=== PATIENT | female | born 1995 | race Caucasian/White ===

== ENCOUNTER 2020-12-05 23:34 | Outpatient (CLI) | payer OTHER ==
[~2020-12-05] VITALS: Ht 160 cm; Wt 83.9 kg
[2020-12-05 23:51] VITALS: BP 119/69
[2020-12-05] MEDS ORDERED: PRENTAB9 PO (23:56)
[2020-12-06 00:47] LABS: HEMATOCRIT 31.7 % (36.0-47.0); MEAN CORPUSCULAR HEMOGLOBIN 28.5 pg (27.0-33.0); MEAN CORPUSCULAR HGB CONC 31.5 g/dl (32.0-36.5); MEAN CORPUSCULAR VOLUME 90.3 fl (80.0-96.0); PLATELET COUNT, AUTOMATED 202 10^3/uL (150-450); RED BLOOD COUNT 3.51 10^6/uL (4.00-5.40)
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
== END 2020-12-06 00:53 | disposition home or self-care (01) ==
LOC: M LDO 23:34
PROVIDERS: ATTEND Obstetrics & Gynecology
DX: O99.891 Other specified diseases and conditions complicating pregnancy (principal); V89.2XXA Person injured in unspecified motor-vehicle accident, traffic, initial encounter; Z3A.32 32 weeks gestation of pregnancy
CPT/HCPCS: 36415; 59025; 85027; 85460; G0378; G0463

== ENCOUNTER 2021-01-23 06:35 | Inpatient (IN) | payer OTHER ==
[~2021-01-23] VITALS: Ht 160 cm; Wt 89.1 kg
[2021-01-23] VITALS (20 sets, daily range): BP systolic 106–139; BP diastolic 51–87
[~2021-01-23 06:35] MED LIST: PRENTAB9 PO
[2021-01-23] MEDS ORDERED: OXYTOCIN 30 UNITS IN 0.9% NaCl 500ML IV BAG (J2590) As Ordered ONE (07:00)
[2021-01-23] MEDS ORDERED: LACTATED RINGER'S 1000 ML IV STA (07:08)
[2021-01-23 07:34] LABS: HEMATOCRIT 34.5 % (36.0-47.0); HEMOGLOBIN 11.2 g/dl (12.0-15.5); MEAN CORPUSCULAR HEMOGLOBIN 27.7 pg (27.0-33.0); MEAN CORPUSCULAR HGB CONC 32.5 g/dl (32.0-36.5); MEAN CORPUSCULAR VOLUME 85.2 fl (80.0-96.0); PLATELET COUNT, AUTOMATED 223 10^3/uL (150-450); RED BLOOD COUNT 4.05 10^6/uL (4.00-5.40); WHITE BLOOD COUNT 9.2 10^3/uL (4.0-10.0)
--- NOTE | 2021-01-23 07:44 | IPNPDOC ---
Text Note Date of Service The patient was seen on 01/23/21. NOTE 01/23/21 25 yo g1 Po LMP 04/21/20 EDC 01/26/21 at 39.5 active labor 9 cm with bulging membranes in distress. plan iv access epidural if time permits VS,Fishbone, I+O VS, Fishbone, I+O Laboratory Tests 01/23/21 07:10 Vital Signs Date Time Temp Pulse Resp B/P (MAP) Pulse Ox O2 Delivery O2 Flow Rate FiO2 01/23/21 07:24 98.2 01/23/21 07:18 93 136/63 (87) Reg Kurtz MD Jan 23, 2021 07:43
[2021-01-23] MEDS ORDERED: LR 1,000 ML IV SCH (08:00)
[2021-01-23] MEDS ORDERED: FENTANYL 2MCG/ML ROPIVACAINE 0.2% IN 0.9% NACL 100ML IVBAG As Ordered ONE (08:24)
[2021-01-23 08:27] LABS: CORD GAS ABE A -4.7; CORD GAS HCO3 A 23.8 MEQ/L; CORD GAS O2 SAT A 54.3 %; CORD GAS PCO2 A 57.4 mmHg; CORD GAS PH A 7.235 UNITS; CORD GAS PO2 A 25.8 mmHg; CORD GAS SBC A 19.5 MEQ/L; CORD GAS TCO2 A 25.5 MEQ/L
[2021-01-23 08:29] LABS: CORD GAS ABE V -5.9; CORD GAS HCO3 V 18.9 MEQ/L; CORD GAS O2 SAT V 88.4 %; CORD GAS PCO2 V 35.3 mmHg; CORD GAS PH V 7.346 UNITS; CORD GAS PO2 V 45.7 mmHg; CORD GAS SBC V 19.5 MEQ/L
--- NOTE | 2021-01-23 08:34 | DNPDOC ---
[facility] Delivery Note Delivery Note Item Value Date Time White Blood Count 9.2 10^3/uL 01/23/21 0710 Red Blood Count 4.05 10^6/uL 01/23/21 0710 Hemoglobin 11.2 g/dl L 01/23/21 0710 Hematocrit 34.5 % L 01/23/21 0710 Mean Corpuscular Volume 85.2 fl 01/23/21 0710 Mean Corpuscular Hemoglobin 27.7 pg 01/23/21 0710 Mean Corpuscular Hemoglobin Concent 32.5 g/dl 01/23/21 0710 Red Cell Distribution Width 14.0 % 01/23/21 0710 Platelet Count 223 10^3/uL 01/23/21 0710 DATE OF DELIVERY: 01/23/2021 PREDELIVERY DIAGNOSIS: 39.5 weeks' gestation and labor. POST DELIVERY DIAGNOSIS: Delivered. PROCEDURE: [Spontaneous PRECIPITATE DELIVERY IN [place] [employer]IC: Dr. Wander DAVEY ANESTHESIA: EPIDURAL POST DELIVERY FOR REPAIR ESTIMATED BLOOD LOSS: 800 mL. FINDINGS: 7 pound 0 ounce FEMALE Score 9/9 , nuchal cord times 0 BORN IN [place] MECONIUM DELIVERY SUMMARY: Patient is a 25 -year-old 1 now para 1 who was admitted to labor and delivery ACTIVE LABOR FULLY DILATED PRECIPITATE UNCONTROLLED DELIVERY FEMALE. IN [place] WITH MECONIUM SUSTAINED 4 TH DEGREE SHAKIR URETERAL AND SHAKIR CLITORAL TEAR REQUIRE EPIDURAL FOR REPAIR. ATONIC UTERUS NEED FOR CYTOTEC AND IV PITOCIN HER CATHETER IN AWAITING ANESTHESIA Reg Davey MD Jan 23, 2021 08:29
[2021-01-23] MEDS ORDERED: OXYTOCIN INJ 10 UNITS/ML VIAL (J2590) IV ONE ×3 (08:35→11:45)
--- NOTE | 2021-01-23 08:56 | HPEPDOC ---
Obstetrical History & Physical General Date of Admission Jan 23, 2021 at 06:57 Primary Care Physician: Reg Kurtz MD History of Present Illness 01/23/2021 ADMITTED IN ACTIVE LABOR FULLY DILATED AND INVOLUNTARY PUSHING IMMANENT DELIVERY Chief Complaint: Contractions, term Information Provided By: Patient Age: 25 : 1 Term: 1 Pre-term: 0 Abortions: 0 Livin Care Care: Good Care Number of Visits: 9 Dating Final EDC: Jan 26, 2021 Final EDC by: LMP LMP: Apr 21, 2020 1st Trimester Date: Jul 07, 2020 Weeks + Days: 11.0 Estimated Date of Confinement: Jan 26, 2021 EGA at Admission: 39.5 Antepartum Course Diagnos(e)s ACTIVE LABOR AT TERM Height (inches): 53 Pre- weight (lbs.): 160 Admission Weight (lbs.): 195 Change in Weight (lbs.): 35 Past Medical History Past Obstetrical History : 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 Past Medical History Surgical History: Denies/None Family History Significant Family History: No pertinent family hx Social History Social history NON SMOKER NO ETOH NO RECREATIONAL DRUGS NO VAPING TO AD NO VIOLENCE Marital Status: Family situation: Spouse/partner home Psychosocial History: No pertinent psych hx * Smoker: non-smoker Alcohol: Denies Drugs: denies Abuse Violence Screening Have you been hit/kicked/slapp: No Have you been sexually assault: No Imunizations Tdap status: current Influenza Status: current Allergies Coded Allergies: No Known Allergies (Unverified , 12/05/20) Medications Scheduled No.137/Iron/Folic Acd ( Vitamin Tablet) 1 Each Tablet, 1 TAB PO DAILY Physical Examination Physical Examination GENERAL: Alert and oriented times three. BREAST: . ABDOMEN: Gravid and non-tender to touch. FETUS: Is vertex (VTX) by sterile vaginal examination (SVE), fetus is vertex (VTX) by Silvino. HEART RATE: Regular rate and rhythm. LUNGS: Clear to auscultation (CTA). EXTREMITIES: No edema. No clonus. Deep tendon reflexes (DTRs) + . Other physical findings STRIAE NO JVD NO BRUITS NO DVT NO SOB Vital Signs/I&O Vital Signs Date Time Temp Pulse Resp B/P (MAP) Pulse Ox O2 Delivery O2 Flow Rate FiO2 3/19/21 07:24 98.2 01/23/21 07:18 93 136/63 (87) Laboratory Data [facility] Laboratory Tests 2 01/23/21 07:10: Nucleated Red Blood Cells % (auto) 0.0 01/23/21 07:11: Serology Scanned Report Hepatitis B Testing 01/23/21 08:18: Cord Arterial Blood pH 7.235, Cord Arterial Blood PCO2 57.4, Cord Arterial Blood PO2 25.8, Cord Arterial Blood HCO3 23.8, Cord Arterial Blood Total CO2 25.5, Cord Arterial Blood Base Excess -4.7, Cord Arterial Base Excess (Standard 19.5, Cord Arterial Bld Oxygen Saturation 54.3, Cord Venous Blood pH 7.346, Cord Venous Blood PCO2 35.3, Cord Venous Blood PO2 45.7, Cord Venous Blood HCO3 18.9, Cord Venous Blood Total CO2 20.0, Cord Venous Base Excess (Actual) -5.9, Cord Venous Base Excess (Standard) 19.5, Cord Venous Blood Oxygen Saturation 88.4 CBC/BMP Laboratory Tests 01/23/21 07:10 Microbiology FULLY DILATED INVOLUNTARY PUSHING Pertinent Laboratoy Data Blood Type: A+ RBC Antibody Screen: Negative HIV: Negative Hepatitis B: Negative Rapid Plasma Reagin: Nonreactive Rubella: Immune Varicella: Immune Chlamydia/Gonorrhea: Negative Group B Streptococcus: Negative Cystic Fibrosis: Negative Anatomy Ultrasound Placenta Location: Anterior Normal Anatomy: Yes Placenta Previa: No Steroid Therapy Steroid Therapy: No Vaginal Examination Dilation: complete Effacement: 100% Station: +2 Cervical Consistency: Soft Cervical Position: Anterior Presentation: Cephalic presentation Position: Vertex (occiput) Assessment Variability: Moderate Accelerations: Present Decelerations: None Tocometer Contractions: Yes Frequency: regular Duration: greater than 60 seconds Strength: palpated as strong Assessment/Plan Assessment 25-year-old (G)[1 para (P0 at 39.5 weeks by 11week ultrasound. Presents to Labor and Delivery (L&D) ACTIVE LABOR PRECIPITATE DELIVERY Plan Admit and orient. Visiting Teacher and consent. Diet: NPO Group B Streptococcus (GBS) [negative]. Labs and intravenous (IV) per unit protocol. Counseled on Pitocin POST . Lactated Ringers (LR): Bolus 1000 mL, then at 125 mL/hr. Anticipate [normal spontaneous delivery ([facility] Labor and Delivery Counseling PLAN FOR IMMANENT DELIVERY Reg Kurtz MD Jan 23, 2021 08:55
[2021-01-23] MEDS ORDERED: OXYTOCIN DRIP 30 UNITS in IV 1 EA IV SCH (09:00)
[2021-01-23] MEDS ORDERED: ePHEDrine SULFATE 25 MG/5 ML(5MG/ML) SYRINGE As Ordered ONE (10:54)
[2021-01-23] MEDS ORDERED: FENTANYL/ROPIVACAINE/NACL BAG 100 ML EPIDURAL SCH (10:55)
[2021-01-23] MEDS ORDERED: ONDANSETRON 4MG/2ML VIAL IV PRN (10:55)
[2021-01-23] MEDS ORDERED: diphenhydrAMINE 50MG/ML VIAL (J1200) IV PRN (10:55)
[2021-01-23] MEDS ORDERED: EPIDURAL COMMENT XX SCH (10:55)
[2021-01-23] MEDS ORDERED: NALOXONE INJ 0.4MG/1ML VIAL (J2310 PER 1MG) IV PRN (10:55)
[2021-01-23] MEDS ORDERED: EPIDURAL/PCA KEYS XX PRN (10:55)
[2021-01-23] MEDS ORDERED: LACTATED RINGER'S 1000 ML IV PRN (10:55)
[2021-01-23] MEDS ORDERED: REFRIGERATOR IV KEYS XX PRN (10:55)
[2021-01-23] MEDS: ePHEDrine SULFATE 25 MG/5 ML(5MG/ML) SYRINGE IV PRN ×2 (10:59→11:05)
[2021-01-23] MEDS ORDERED: ACETAMINOPHEN 500 MG TAB PO PRN (11:45)
[2021-01-23] MEDS ORDERED: DIBUCAINE 1% OINTMENT 30GM TOP PRN (11:45)
[2021-01-23] MEDS ORDERED: RHOGAM 300 MCG (1500 IU) INJ (J2790) IM SCH (11:45)
[2021-01-23] MEDS ORDERED: ACETAMINOPHEN TAB 650MG DOSE (2X325MG) PO PRN (11:45)
[2021-01-23] MEDS ORDERED: METHYLERGONOVINE MALEATE 0.2 MG TAB PO PRN (11:45)
[2021-01-23] MEDS ORDERED: OXYTOCIN DRIP 30 UNITS in IV 1 EA IV ONE (11:45)
[2021-01-23] MEDS ORDERED: ANUSOL HC CREAM 30GM TOP PRN (11:45)
[2021-01-23] MEDS ORDERED: IBUPROFEN 800 MG TAB PO PRN (11:45)
[2021-01-23] MEDS ORDERED: MOM 30ML SUSPENSION UDC PO PRN (11:45)
[2021-01-23] MEDS ORDERED: MEASLES,MUMPS,RUBELLA VACCINE INJ (MMR-II) (90707) SC SCH (11:45)
--- NOTE | 2021-01-23 12:10 | ROOPDOC ---
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 PROCEDURE NOTE: AFTER ADEQUATE EPIDURAL EVALUATION OF TEAR REVEALED VAGINAL MID LINE LINEAR TEAR UP 2/3 RD VAGINA ALSO SPHINCTER TEAR WITH MUSCLE AND CAPSULE TEAR . ALSO SHAKIR URETHERAL AND CLITORAL TEAR . DESCRIPTION OF PROCEDURE: WITH ADEQUATE VISUALIZATION TOP OF VAGINAL TEAR PLACED APEX SUTURE 3-0 THEN CONTINUOUS SUTURE TO FOURCHETTE. IDENTIFIED MUSCLE APPROXIMATED TO MID LINE THEN CAPSULE REPAIRED WITH 2-0 VICRYL THEN FINISHED VAGINAL REPAIR . DIGITAL EXAMINATION SPHINCTER COMPLETE TIGHT NO DEFECT TO RECTAL MUCOSA . CHANGE GLOVES AND REPAIRED CLITORAL LACERATION AND PERIURETERAL AREA WITH 2-0 WITH GOOD HEMOSTASIS . FINAL EXAMINATION LATERAL GOODEN AND CERVIX INTACT Reg Kurtz MD Jan 23, 2021 12:09
[2021-01-23] MEDS: DOCUSATE SODIUM 100MG CAPSULE PO PRN (19:31)
[2021-01-24 06:00] VITALS: BP 108/56
[2021-01-24] MEDS: IBUPROFEN 600MG TAB PO PRN ×2 (07:41→19:40)
[2021-01-24] MEDS: PRENATAL VITAMINS CHEWABLE TABLET PO SCH (07:41)
[2021-01-24 09:03] LABS: HEMATOCRIT 28.8 % (36.0-47.0); HEMOGLOBIN 9.3 g/dl (12.0-15.5); MEAN CORPUSCULAR HEMOGLOBIN 27.8 pg (27.0-33.0); MEAN CORPUSCULAR HGB CONC 32.3 g/dl (32.0-36.5); MEAN CORPUSCULAR VOLUME 86.2 fl (80.0-96.0); PLATELET COUNT, AUTOMATED 192 10^3/uL (150-450); RED BLOOD COUNT 3.34 10^6/uL (4.00-5.40); WHITE BLOOD COUNT 10.5 10^3/uL (4.0-10.0)
--- NOTE | 2021-01-24 13:59 | IPN ---
PROGRESS NOTE DATE: 01/24/2021 SUBJECTIVE: This lady is a 25-year-old 1, now para 1, was admitted at 39 and 6 weeks of gestation in active labor, precipitously delivered livebirth female infant 7 pounds 0 ounces, 3180 gm, Apgars 9 and 9 at one and five minutes respectively. Arterial pH 7.23, base excess -4.7, venous pH 7.34, base excess -5.9. Unfortunately, with a precipitous delivery and uncontrolled she sustained a 4th degree tear, had a hemorrhage, atonic uterus requiring Cytotec and Pitocin, epidural to repair her 4th degree. On her first day we discussed phlebitis, cystitis, mastitis, endometritis, cellulitis, diet, exercise, pain management, perineal care. She will have ongoing Cimetidine as well as Mag-Oxide as well as Colace in order to ensure she has a soft bowel movement. PHYSICAL EXAMINATION: Blood pressure 108/56, respirations 16, pulse is 94, temperature is 97.6. Weiner catheter is removed and she is voiding well. Her admitting hemoglobin was 11.2, hematocrit 34.5 and platelets are 223. day 1 hemoglobin is still pending. The rest of the examination is unremarkable. Normocephalic, atraumatic. Neck full range of motion. Pupils equal and reactive to light. Distal pulses symmetric. No evidence of DVT, PE or superficial phlebitis. Chest is clear bilaterally to bases, no wheezing or rhonchi. No CVA tenderness. Abdomen soft, four quadrant bowel sounds are noted. Uterus 2 below. She is presently breast feeding. She is voiding. She is walking, passing gas. PLAN: For discharge tomorrow with appointment for two week check of her perineum and 6 week check both at [facility]. Medications were dispensed at [place]. All questions were answered. 20 minute discussion. cc: [facility]
[2021-01-24 18:00] VITALS: BP 128/81
[2021-01-24] MEDS: DOCUSATE SODIUM 100MG CAPSULE PO PRN (19:40)
[2021-01-25 06:26] VITALS: BP 112/65
[2021-01-25] MEDS: PRENATAL VITAMINS CHEWABLE TABLET PO SCH (08:08)
--- NOTE | 2021-01-25 08:51 | OBDS ---
[facility] Obstetrical Discharge Sum. Obstetrical Discharge Summary Date: Jan 25, 2021 Time: 08:30 : 1 Term: 1 Pre-term: 0 Abortions: 0 Livin Labor Precipitous labor Delivery with 4MLL and periclitoral laceration repaired Infant Sex: Female Anesthesia: Regional Anesthesia Episiotomy fourth degree midline and periclitoral repaired, well approximated with small edema and lochia A/P, Post Course List any complications Admission diagnosis: active labor. Discharge diagnosis: day 2 Condition at Discharge: stable Discharge Instructions: Home Activity: OOB ad bravo Diet: regular Medications: @[facility] Follow-up: for on [id number] Other: Reviewed , PP BCM with micronor, signs of depression, reasons to return for care, and [employer]iest baby on the [employer] steps to soothe a baby. Schedule 6wk BONNY KHAN CNM Jan 25, 2021 08:51
[2021-01-25] MEDS: IBUPROFEN 600MG TAB PO PRN (13:46)
== END 2021-01-25 14:20 | disposition home or self-care (01) | DRG 768 ==
LOC: M LDO 06:35 → M LDI 06:57 → M OBS 13:15
PROVIDERS: ADMIT Obstetrics & Gynecology; ATTEND Obstetrics & Gynecology
PROC: 0DQP0ZZ Repair Rectum, Open Approach (ICD-10-PCS; principal; 2021-01-23)
PROC: 10E0XZZ Delivery of Products of Conception, External Approach (ICD-10-PCS; 2021-01-23)
DX: O62.3 Precipitate labor (principal); Z37.0 Single live birth; O70.3 Fourth degree perineal laceration during delivery; O72.1 Other immediate postpartum hemorrhage; Z3A.39 39 weeks gestation of pregnancy; O77.0 Labor and delivery complicated by meconium in amniotic fluid